=== PATIENT | male | born 1980 | race Caucasian/White ===

== ENCOUNTER 2017-09-27 08:47 | Emergency (ER) | payer OTHER ==
[~2017-09-27] VITALS: Ht 190.5 cm; Wt 106.6 kg
[2017-09-27 08:53] VITALS: BP 123/85
--- NOTE | 2017-09-27 09:27 | ED GI/GU/ABDOMINAL COMPLAINT ---
History of Present Illness General Chief Complaint: Abdominal Pain/Flank Pain Stated Complaint: ABDOMINAL PAIN Source: patient Exam Limitations: no limitations Vital Signs & Intake/Output Vital Signs & Intake/Output Vital Signs Date Time Temp Pulse Resp B/P B/P Pulse O2 O2 Flow FiO2 Mean Ox Delivery Rate 09/27 0853 98.1 90 18 123/85 98 Room Air Allergies Coded Allergies: NO KNOWN ALLERGIES (05/18/13) Reconcile Medications No Known Home Medications Triage Note: 36M REPORTS ABDOMINAL BLOATING/DISTENTION X1 YEAR ON AND OFF. NEEDS REFERRAL FOR GI. REPORTS HE DOESN'T FEEL PAIN BUT ITS PRESSURE AND UNCOMFORTABLE. SOMETIMES CAUSES SPONTANEOUS REGURG, INCLUDING THIS MORNING. HAS USED PEPCID WITH MINIMAL RELIEF. LOCALIZES PRESSURE TO LUQ, DENIES RADIATION. ENDORSES ETOH 3-4 DAYS PER WEEK 6 BEERS AT A TIME. ALSO REPORTS INTERMITTENT CONSTIPATION, LAST BM ? 1 WEEK. -N/V/D Triage Nurses Notes Reviewed? yes HPI: 36 y/o male, h/o marijuana and alcohol use presenting for abdominal pain x 2 days. States pain is epigastric, burning in nature. Associated on occasion with vomiting which did occur this morning. There has been no fever, chest pain, cough, flank pain, hematuria. Patient states he has had similar symptoms intermittently over the course of the last year. He drinks 3-4 days a week, 5-6 beers per day of drinking. Patient also states he smokes marijuana daily. Symptoms are improved by using a heating pad or getting into a hot shower. He has not had recent weight loss. Also been having diarrhea over the past few days. No sick contacts. Patient has been taking Pepcid and Maalox with improvement. Patient states symptoms have largely resolved by the time of evaluation, although he still feels some epigastric burning. (RALPH GUZMAN,OSMAR) Past History Travel History Traveled to [place] past 21 day No Medical History Any Pertinent Medical History? none Neurological: NONE EENT: NONE Cardiovascular: NONE Respiratory: NONE Gastrointestinal: NONE Hepatic: NONE Renal: NONE Musculoskeletal: NONE Psychiatric: NONE Endocrine: NONE Blood Disorders: NONE Surgical History Surgical History: non-contributory Psychosocial History What is your primary language Congolese Tobacco Use: Current Not Daily Daily Tobacco Use Amount/Type: =< 4 Cigarettes daily ETOH Use: occasional use Illicit Drug Use: marijuana Family History Hx Contributory? Yes (Etoh use, marijuana use) Sexual History Past Sexual History Unobtainable at this time Employment History Past Employment History Unobtainable at this time (OSMAR ROSAS MD) Review of Systems Review of Systems Constitutional: Denies: fever, malaise, weakness, unexplained weight loss. GI: Reports: abdominal pain, bloating, diarrhea, nausea, vomiting. Denies: melena. Musculoskeletal: Denies: back pain, muscle pain. All Other Systems: Reviewed and Negative (OSMAR ROSAS MD) Physical Exam Physical Exam General Appearance: well developed/nourished, no apparent distress, alert Head: atraumatic, normal appearance Eyes: Bilateral: normal appearance, normal inspection. Ears, Nose, Throat, Mouth: hearing grossly normal Respiratory: no respiratory distress, quiet respiration Cardiovascular: regular rate/rhythm Gastrointestinal: soft, non-tender, no organomegaly Back: normal inspection, normal range of motion, No CVA tenderness Neurologic/Psych: awake, alert, normal gait, normal mood/affect Skin: intact, normal color, warm/dry Core Measures ACS in differential dx? No Sepsis Present: No Sepsis Focused Exam Completed? No (OSMAR ROSAS MD) Progress Differential Diagnosis: gastritis, pancreatitis, peptic ulcer, PUD/GERD, Gastroparesis, marijuana hyperemesis syndrome Plan of Care: Orders Procedure Date/time Status URINALYSIS 09/27 916 Complete LIPASE 09/27 916 Complete HEPATIC FUNCTION PANEL 09/27 916 Complete CBC WITHOUT DIFFERENTIAL 09/27 916 Complete BASIC METABOLIC PANEL 09/27 916 Complete Laboratory Tests 09/27/17 0947: Urinalysis LIGHT H, Urine Color YEL, Urine Clarity HAZY H, Urine pH 6.5, Ur Specific [place] 1.025, Urine Protein TRACE H, Urine Ketones 40 H, Urine Nitrite NEG, Urine Bilirubin NEG@ICTO, Urine Urobilinogen 0.2, Ur Leukocyte Esterase NEG, Ur Microscopic SEDIMENT EXAMINED, Urine RBC RARE, Urine WBC 1-3 H , Ur Epithelial Cells RARE, Urine Bacteria FEW H, Granular Casts RARE H, Urine Mucus MOD H, Urine Hemoglobin NEG, Urine Glucose NEG 09/27/17 0942: Anion Gap 14, Estimated GFR > 60, BUN/Creatinine Ratio 13.3, Glucose 96, Calcium 9.7, Total Bilirubin 0.8, Direct Bilirubin 0.1, AST 16 L, ALT 30, Alkaline Phosphatase 60, Total Protein 7.4, Albumin 4.7, Lipase 70, CBC w Diff NO MAN DIFF REQ, RBC 5.31, MCV 87.1, MCH 29.6, MCHC 33.9, RDW 13.1, MPV 7.2 L, Gran % 71.5, Lymphocytes % 18.3 L, Monocytes % 9.2, Eosinophils % 0.7, Basophils % 0.3 , Absolute Granulocytes 5.5, Absolute Lymphocytes 1.4, Absolute Monocytes 0.7 H , Absolute Eosinophils 0.1, Absolute Basophils 0 Initial ED EKG: none Comments: Most likely diagnosis would be PUD or gastritis. He does not have exam findings suggestive of obstruction or acute infection, and he has no tenderness on exam. Patient does drink alcohol regularly so pancreatitis is a consideration, although patient has minimal epigastric tenderness. Will check basic abdominal labs including serum lipase, liver function tests and CBC. Will provide GI cocktail of Pepcid and Maalox. Patient is interested in obtaining a PMD and potentially GI evaluation but will seek this through his insurance. Advised cutting back on marijuana, smoking and etoh use as these are likely contributing to his symptoms. 10:35 Labs and urine reassurring, not c/w acute infection, biliary obstruction or pancreatitis. As above, advised outpt follow-up for likely gastritis vs PUD. Return precautions for worsening symptoms: fever, persistent vomiting, severe abdominal pain. (OSMAR ROSAS MD) Departure Departure Time of Disposition: 1035 Disposition: HOME OR SELF CARE Condition: Stable Clinical Impression Primary Impression: Epigastric abdominal pain Referrals: Unknown (PCP/Family) Departure Forms: Customer Survey General Discharge Information Prescriptions: Current Visit Scripts No Known Home Medications (OSMAR ROSAS MD) Departure Comments I agree with the above physicians documentation. (Kamaljit Arevalo DO
[2017-09-27 09:55] LABS: ABSOLUTE BASOPHIL COUNT 0 /CUMM (0.0-0.2); ABSOLUTE EOSINOPHIL COUNT 0.1 /CUMM (0.0-0.7); ABSOLUTE GRANULOCYTE CT 5.5 /CUMM (1.4-6.5); ABSOLUTE LYMPH COUNT 1.4 /CUMM (1.2-3.4); ABSOLUTE MONOCYTE COUNT 0.7 /CUMM (0.10-0.60); BASOPHIL % 0.3 % (0.0-2.0); EOSINOPHIL % 0.7 % (0-5); GRANULOCYTE % 71.5 % (42.2-75.2); HEMATOCRIT 46.3 % (42-52); MEAN CORPUSCULAR HGB 29.6 PG (27.0-31.0); MEAN CORPUSCULAR HGB CONC 33.9 G/DL (33.0-37.0); MEAN CORPUSCULAR VOLUME 87.1 FL (80.0-94.0); MEAN PLATELET VOLUME 7.2 FL (7.4-10.4); PLATELET COUNT 316 /CUMM (130-400); RBC DISTRIBUTION WIDTH 13.1 % (11.5-14.5); RED BLOOD CELL CT 5.31 /CUMM (4.70-6.10); WHITE BLOOD CELL COUNT 7.7 /CUMM (4.8-10.8)
== END 2017-09-27 11:00 ==
LOC: ERH 08:47
PROVIDERS: Emergency Medicine
DX: R10.13 Epigastric pain (principal)
CPT/HCPCS: 81001